=== PATIENT | male | born 1955 | race Caucasian/White ===

== ENCOUNTER → 2017-01-13 | Outpatient (CLI) | payer OTHER ==
[~2017-01-13] MED LIST: APIX5TAB PO; BRIM0.155 RIGHT EYE; DIGO0.25 PO; DILT1TAB4 PO; DORZ2SOL15 RIGHT EYE; LATA0.002 RIGHT EYE; SERT-132 PO; VIAG50TA PO
== END ==
LOC: OLAB 07:24
PROVIDERS: ATTEND Family Medicine
DX: R41.3 Other amnesia (principal)
CPT/HCPCS: 82607; 84443

== ENCOUNTER → 2017-03-19 | Outpatient (CLI) | payer OTHER ==
[~2017-03-19] MED LIST changes: +CLIN1CAP5 PO; +HYDR-3534 PO; +LEVA500T20 PO; +MUPI2OIN TOPICAL; +OXYC1TAB36 PO; +OXYC1TAB63 PO; +SENN1TAB PO; -VIAG50TA PO; +VITA100021 SL
[2017-03-19 09:08] LABS: HEMATOCRIT 45.8 % (39.0-51.0); MEAN CELL VOLUME 98.8 FL (80.0-100.0); MEAN CORPUSCULAR HEMOGLOBIN 33.2 PG (27.0-34.0); MEAN CORPUSCULAR HGB CONC 33.6 % (32.0-36.0); PLATELET COUNT 214 TH/MM3 (150-450); RED BLOOD COUNT 4.64 MIL/MM3 (4.50-5.90); RED CELL DISTRIBUTION WIDTH 12.7 % (11.6-17.2); REVIEW FLAG FINAL; WHITE BLOOD COUNT 4.7 TH/MM3 (4.0-11.0)
[2017-03-19 09:36] LABS: BICARBONATE 27.7 MEQ/L (21.0-32.0); POTASSIUM 4.1 MEQ/L (3.5-5.1)
== END ==
LOC: OLAB 07:36
PROVIDERS: ATTEND Nuclear Medicine Nuclear Cardiology
DX: I35.1 Nonrheumatic aortic (valve) insufficiency (principal); E03.9 Hypothyroidism, unspecified; I51.7 Cardiomegaly; I48.91 Unspecified atrial fibrillation
CPT/HCPCS: 80048; 85027

== ENCOUNTER 2017-04-30 21:33 | Inpatient (IN) | payer OTHER ==
[~2017-04-30] VITALS: Ht 188 cm; Wt 98.0 kg
[~2017-04-30 21:33] MED LIST changes: -CLIN1CAP5 PO; -HYDR-3534 PO; -LEVA500T20 PO; -OXYC1TAB36 PO; -OXYC1TAB63 PO; -SENN1TAB PO
[2017-04-30 21:38] VITALS: BP 119/71; PULSE 112; RESP 16; TEMP 97.8; O2SAT 98
--- NOTE | 2017-04-30 23:24 | PD ---
HPI Chief Complaint: Edema Time Seen by Provider: 22:51 Travel History International Travel<30 days: No Contact w/Intl Traveler<30days: No Traveled to known affect area: No History of Present Illness HPI Diagnoses a 62-year-old male who was seen and evaluated and admitted as a trauma alert on April 23, who presents today with complaints of worsening swelling and pain of his right lower extremity. Patient has a fevers, chills. He reports his pain and swelling is worse when he gets up to stand. He denies any drainage from his laceration. There are no other complaints time my examination. The patient does have a history of atrial fibrillation and is on eliquis. He denies any serous drainage of his wound. PFSH Past Medical History Atrial Fibrillation: Yes Diminished Hearing: No Glaucoma: Yes (rt eye) Immunizations Current: No Tetanus Vaccination: < 5 Years Past Surgical History Surgical History: No Previous Surgery Social History Alcohol Use: Yes (OCC) Tobacco Use: No Substance Use: No Allergies-Medications (Allergen,Severity, Reaction): Coded Allergies: No Known Allergies (Verified , 04/30/17) Reported Meds & Prescriptions Reported Meds & Active Scripts Active Lortab (Hydrocodone-Acetaminophen) 7.5-325 Mg Tab 1 Tab PO Q6H PRN Clindamycin (Clindamycin HCl) 150 Mg Cap 450 Mg PO TID 10 Days Mupirocin Topical (Mupirocin) 2 % Oint 1 Applic TOPICAL BID Sertraline (Sertraline HCl) 50 Mg Tab 50 Mg PO DAILY Brimonidine Opth Drops (Brimonidine Tartrate) 0.15% Soln 1 Drop RIGHT EYE BID Digoxin 0.25 Mg Tab 0.25 Mg PO DAILY Reported Vitamin B-12 (Cyanocobalamin) 1,000 Mcg Subl 1,000 Mcg SL DAILY Dorzolamide-Timolol Opth Drops 22.3-6.8 Mg/Ml Soln 1 Drop RIGHT EYE BID Eliquis (Apixaban) 5 Mg Tab 5 Mg PO BID Diltiazem ER 24 HR 240 Mg Briana 240 Mg PO DAILY Latanoprost Opth Drops (Latanoprost) 0.005% Drops 1 Drop RIGHT EYE HS Refrigerate until opened. Review of Systems Except as stated in HPI: all other systems reviewed are Neg General / Constitutional: No: Fever, Chills HENT: No: Headaches, Neck Pain Cardiovascular: No: Chest Pain or Discomfort, Palpitations Respiratory: No: Cough, Shortness of Breath Gastrointestinal: No: Nausea, Vomiting, Diarrhea Musculoskeletal: Positive: Edema, Pain (or significant edema of the right lower extremity [place] pain of the right lower extremity), No: Weakness Neurologic: No: Weakness, Dizziness, Headache Physical Exam Narrative GENERAL: Well developed well-nourished male in no acute respiratory distress. SKIN: Focused skin assessment warm/dry. HEAD: Atraumatic. Normocephalic. EYES: Pupils equal and round. No scleral icterus. No injection or drainage. ENT: No nasal bleeding or discharge. Mucous membranes pink and moist. NECK: Trachea midline. Supple. CARDIOVASCULAR: Regular rate and rhythm . No murmur appreciated. RESPIRATORY: No accessory muscle use. Clear to auscultation. Breath sounds equal bilaterally. GASTROINTESTINAL: Abdomen soft, non-tender, nondistended. Hepatic and splenic margins not palpable. MUSCULOSKELETAL: No obvious deformities. Patient has hematoma extending from his right upper inner thigh all the way down to his heel. There is no evidence of cellulitis. There is 1+ edema noted. He is able to flex and extend his ankle and knee. NEUROLOGICAL: Awake and alert. No obvious cranial nerve deficits. Motor grossly within normal limits. Normal speech. PSYCHIATRIC: Appropriate mood and affect; insight and judgment normal. Data Data Last Documented VS Vital Signs Date Time Temp Pulse Resp B/P (MAP) Pulse Ox O2 Delivery O2 Flow Rate FiO2 04/30/17 21:38 97.8 112 16 119/71 (87) 98 Room Air Orders Orders Ankle, Limited (Ap&Lat) (04/30/17 22:53) Femur (Ap & Lat/2vws) (04/30/17 22:53) Foot, Limited (2vws) (04/30/17 22:53) Tibia/Fibula (Ap/Lat) (04/30/17 22:53) Us Leg Venous Doppler (04/30/17 22:53) Complete Blood Count With Diff (05/01/17 00:08) Blood Culture (05/01/17 00:08) Morphine Inj (Morphine Inj) (05/01/17 00:15) Ondansetron Inj (Zofran Inj) (05/01/17 00:15) Mri Foot W&W/O Contrast (05/01/17 ) Gadodiamide Pf Inj (Omniscan Pf Inj) (05/01/17 01:42) Vancomycin Inj (Vancomycin Inj) (05/01/17 02:45) Apixaban (Eliquis) (05/01/17 02:45) Diltiazem Cd (Cardizem Cd) (05/01/17 02:45) Admit Order (Ed Use Only) (05/01/17 03:07) Labs Laboratory Tests Test 05/01/17 00:15 White Blood Count 8.4 TH/MM3 Red Blood Count 3.44 MIL/MM3 Hemoglobin 11.7 GM/DL Hematocrit 33.6 % Mean Corpuscular Volume 97.5 FL Mean Corpuscular Hemoglobin 34.1 PG Mean Corpuscular Hemoglobin Concent 34.9 % Red Cell Distribution Width 12.6 % Platelet Count 323 TH/MM3 Mean Platelet Volume 9.5 FL Neutrophils (%) (Auto) 71.5 % Lymphocytes (%) (Auto) 14.3 % Monocytes (%) (Auto) 13.4 % Eosinophils (%) (Auto) 0.2 % Basophils (%) (Auto) 0.6 % Neutrophils # (Auto) 6.0 TH/MM3 Lymphocytes # (Auto) 1.2 TH/MM3 Monocytes # (Auto) 1.1 TH/MM3 Eosinophils # (Auto) 0.0 TH/MM3 Basophils # (Auto) 0.1 TH/MM3 CBC Comment DIFF FINAL Differential Comment MDM Medical Decision Making Medical Screen Exam Complete: Yes Emergency Medical Condition: Yes Differential Diagnosis Sialitis versus fracture versus DVT Narrative Course 62-year-old male who was seen here on the as a trauma patient. At that time patient had fallen off of a semitruck onto a forklift. He had a large laceration and contusion to his right lower extremity. He was discharged home on Keflex. He has had worsening swelling and pain over the last 24 hours. The patient had a subjective fever at home. White blood cell count was within normal limits. X-rays of his right femur tib-fib and foot and ankle were ordered. All were negative except for the foot that had abnormality noted in his toes and an MRI was recommended. MRI shows cellulitis with synovitis in his right first toe. The patient will be admitted to the hospital and placed on vancomycin. Since he was on outpatient antibiotics this is a failed antibiotic cellulitis. This was discussed with Dr. Thompson, physician covering for his primary care doctor Dr. Bright Barrett. Diagnosis Primary Impression: right lower extremity cellulitis, failed outpatient antibiotics Additional Impressions: previous traumatic injury to right lower extremity. Atrial fibrillation Anticoagulated Admitting Information Admitting Physician Requests: Admit Scripts Hydrocodone-Acetaminophen (Lortab) 7.5-325 Mg Tab 1 TAB PO Q6H Y for PAIN, #20 TAB 0 Refills Prov: Sanjeev Caceres MD 05/01/17 Clindamycin (Clindamycin) 150 Mg Cap 450 MG PO TID for Infection for 10 Days, CAP 0 Refills Prov: Sanjeev Caceres MD 05/01/17 Sanjeev Caceres MD Apr 30, 2017 23:24
--- NOTE | 2017-04-30 23:51 | RADRPT ---
EXAM DATE/TIME: 04/30/2017 23:01 [facility] COMPARISON: No previous studies available for comparison. INDICATIONS : Right leg swelling. MEDICAL HISTORY : Atrial fibrillation. Glaucoma. Right leg swelling. SURGICAL HISTORY : Stitches to right medial calf. ENCOUNTER: Initial ACUITY: 3 days PAIN SCORE: 7/10 LOCATION: Right leg. TECHNIQUE: Venous ultrasound of the leg was performed from the inguinal ligament to the proximal calf. Real-meet e, color Doppler and spectral tracing, compression and augmentation techniques were used. FINDINGS: There is normal compressibility of the deep venous system from the inguinal region to the proximal ca lf. No echogenic clot is seen in the lumen of the common femoral, femoral, popliteal, and posterior tibial veins. There is a normal response of the venous system to proximal and distal augmentation an d respiration. There is a large hypoechoic mass in the medial right calf measuring 11 CM which may r eflect hematoma. CONCLUSION: 1. No evidence of deep venous thrombosis. 2. Probable hematoma right calf Simone Hernandez MD on April 30, 2017 at 23:48 Board Certified Radiologist. This report was verified electronically.
--- NOTE | 2017-04-30 23:59 | RADRPT ---
EXAM DATE/TIME: 04/30/2017 23:24 [facility] COMPARISON: No previous studies available for comparison. INDICATIONS : Right upper leg pain, swelling. Patient had stitches in right lower leg 1 week ago. MEDICAL HISTORY : None. SURGICAL HISTORY : None. ENCOUNTER: Initial ACUITY: 1 week PAIN SCORE: 5/10 LOCATION: Right entire upper leg FINDINGS: There is no evidence of acute fracture. Bony mineralization is normal. The femoral neck is broad whic h may be related to previous trauma. Joint spaces are maintained. A suprapatellar joint effusion is p resent. CONCLUSION: 1. There is no evidence of acute fracture. Joint effusion Simone Hernandez MD on April 30, 2017 at 23:57 Board Certified Radiologist. This report was verified electronically.
[2017-05-01] VITALS (9 sets, daily range): BP systolic 99–119; BP diastolic 61–79; PULSE 68–94; RESP 18–22; TEMP 96.5–98.7; O2SAT 95–99
--- NOTE | 2017-05-01 | RADRPT ---
EXAM DATE/TIME: 04/30/2017 23:27 [facility] COMPARISON: No previous studies available for comparison. INDICATIONS : Right ankle pain, swelling. Patient had stitches in right lower leg 1 week ago. MEDICAL HISTORY : None. SURGICAL HISTORY : None. ENCOUNTER: Initial ACUITY: 1 day PAIN SCORE: 5/10 LOCATION: Right lateral lower leg FINDINGS: Soft tissue swelling is present medially and laterally. The ankle mortise is intact. There is no evid ence of acute fracture. Bony mineralization is normal. An inferior calcaneal spur is present. CONCLUSION: 1. There is no evidence of acute fracture. Simone Hernandez MD on April 30, 2017 at 23:58 Board Certified Radiologist. This report was verified electronically.
--- NOTE | 2017-05-01 | RADRPT ---
EXAM DATE/TIME: 04/30/2017 23:27 [facility] COMPARISON: No previous studies available for comparison. INDICATIONS : Right lower leg pain, swelling. Patient had stitches in right lower leg 1 week ago. MEDICAL HISTORY : None. SURGICAL HISTORY : None. ENCOUNTER: Initial ACUITY: 1 week PAIN SCORE: 5/10 LOCATION: Right lateral lower leg FINDINGS: Two view examination of the right tibia demonstrates no evidence of fracture or dislocation. Bony mi neralization is normal. The soft tissue structures are intact. CONCLUSION: 1. There is no evidence of acute fracture. Simone Hernandez MD on April 30, 2017 at 23:58 Board Certified Radiologist. This report was verified electronically.
--- NOTE | 2017-05-01 00:05 | RADRPT ---
EXAM DATE/TIME: 04/30/2017 23:29 [facility] COMPARISON: No previous studies available for comparison. INDICATIONS : Right foot pain, swelling for 1 week. Patient had stitches in lower leg 1 week ago. MEDICAL HISTORY : None. SURGICAL HISTORY : None. ENCOUNTER: Initial ACUITY: 1 week PAIN SCORE: 5/10 LOCATION: Right entire foot FINDINGS: Diffuse soft tissue swelling is present. There is hallux valgus deformity at the head of the first me tatarsal. Osteoarthritis is present. There is a lucent lesion measuring 2 cm in diameter in the first proximal phalanx. Etiology is uncertain though no breast features are identified. An inferior calcan eal spur is present. CONCLUSION: 1. There is no evidence of acute fracture. Diffuse soft tissue swelling 2. 2 cm lucent lesion in the proximal phalanx first digit of uncertain etiology. MRI is recommended f or further evaluation if clinically indicated. Simone Hernandez MD on May 01, 2017 at 0:02 Board Certified Radiologist. This report was verified electronically.
[2017-05-01] MEDS ORDERED: ONDANSETRON HCL 4 MG/2 ML VIAL IV PUSH ONE (00:15)
[2017-05-01] MEDS ORDERED: MORPHINE SULFATE 8 MG/ML INJ IV PUSH ONE (00:15)
[2017-05-01 00:28] LABS: BASOPHIL # 0.1 TH/MM3 (0-0.2); BASOPHIL % 0.6 % (0.0-2.0); EOSINOPHIL % 0.2 % (0.0-4.0); HEMATOCRIT 33.6 % (39.0-51.0); HEMO FLAGS DIFF FINAL; LYMPH % 14.3 % (9.0-44.0); LYMPHOCYTE # 1.2 TH/MM3 (1.0-4.8); MEAN CELL VOLUME 97.5 FL (80.0-100.0); MEAN CORPUSCULAR HEMOGLOBIN 34.1 PG (27.0-34.0); MEAN CORPUSCULAR HGB CONC 34.9 % (32.0-36.0); MONO % 13.4 % (0.0-8.0); NEUT % 71.5 % (16.0-70.0); PLATELET COUNT 323 TH/MM3 (150-450); RED BLOOD COUNT 3.44 MIL/MM3 (4.50-5.90); RED CELL DISTRIBUTION WIDTH 12.6 % (11.6-17.2); WHITE BLOOD COUNT 8.4 TH/MM3 (4.0-11.0)
[2017-05-01] MEDS ORDERED: GADODIAMIDE PF 287 MG/ML 20 ML VIAL (for RAD MRI) IVCONTRAST ONE (01:42)
[2017-05-01] MEDS ORDERED: CLIN1CAP5 PO (01:43)
[2017-05-01] MEDS ORDERED: HYDR-3534 PO (01:43)
--- NOTE | 2017-05-01 02:27 | RADRPT ---
EXAM DATE/TIME: 05/01/2017 01:25 [facility] COMPARISON: FOOT RIGHT LIMITED (2VWS), April 30, 2017, 23:29. INDICATIONS : Trauma. Pain and swelling of right foot with abnormal foot xray. CONTRAST: 19 cc Omniscan (gadodiamide) IV MEDICAL HISTORY : Atrial fibrillation. SURGICAL HISTORY : None. ENCOUNTER: Initial ACUITY: 1 week PAIN SCORE: 6/10 LOCATION: Right foot. TECHNIQUE: Multiplanar, multisequence MRI examination was performed without contrast and after the intravenous a dministration of gadolinium. FINDINGS: No discrete lesion is identified involving the proximal phalanx. There is prominent enhancement of th e first metatarsophalangeal joint with fluid within the joint and findings of osteoarthritis. No toph i are seen. No focal areas of marrow placement are identified. There is diffuse soft tissue swelling over the dorsum of the foot. There is no evidence of abscess. CONCLUSION: Findings of cellulitis as well synovitis involving the first metatarsophalangeal joint. No bony destr uctive lesion is identified Simone Hernandez MD on May 01, 2017 at 2:18 Board Certified Radiologist. This report was verified electronically.
[2017-05-01] MEDS ORDERED: VANCOMYCIN INJ 1,000 MG in SODIUM CHLOR 0.9% 250 ML INJ 250 ML IV ONE (02:45)
[2017-05-01] MEDS ORDERED: DILTIAZEM-CD 240 MG CAP ER PO ONE (02:45)
[2017-05-01] MEDS ORDERED: APIXABAN 5 MG TABLET PO ONE (02:45)
--- NOTE | 2017-05-01 03:05 | HHI.HP ---
[facility] Service Family Medicine Primary Care Physician Bright Shane MD Admission Diagnosis Diagnoses: International Travel<30 Days: No Contact w/Intl Traveler<30days: No Known Affected Area: No History of Present Illness Patient is a a 62-year-old male with a history of A. fib on Eliquis who was seen and evaluated and admitted as a trauma alert on April 23, who presents today with complaints of worsening pain and swelling of his right lower extremity. Patient denies fevers, chills. He reports his pain and swelling is worse when he gets up to stand. He reports that he is not taking any pain medications for this pain. He describes the pain as an intense dull ache, worse with movement, especially at the ball of foot bad. He reports that when he arrived at the emergency department his pain was 8 out of 10. His pain is 10 out of 10 with standing. He reports that the morphine he received in the ED helped. He reports red and clear drainage from his laceration. He denies any other complaints. After trauma alert on 04/23, he was discharged with Keflex and follow up. He was taking this medication from 04/23 to yesterday. He f/u in clinic on Friday and saw Dr. Shirley. He returned to clinic again on Friday and saw Dr. Bass and Dr. Shane. He was still achey and sore at that time. The swelling and redness was mostly the same. However, his ankle and foot were not bad. They continued Keflex and switched Neosporin for Mupirocin and cautioned him regarding compartment syndrome. Patient presented today because his toes got sore today. He reports foot is more swollen now, more painful, more TTP. Of note, he reports that he has been showering normally, but he pats his wound dry. (Ross Thompson MD R2) Review of Systems Other Denies fever or chills No polyuria, polydipsia Denies vision changes, eye pain, hearing changes, rhinorrhea, sore throat Denies sore throat, runny nose, cough No chest pain, palpitations, shortness of breath No abdominal pain Denies constipation, diarrhea, nausea, vomiting, black or bloody stools No dysuria, hematuria Denies muscle/joint pain, weakness, headache No rashes, itching (Ross Thompson MD R2) Past Family Social History Past Medical History Past Medical History: Paroxysmal A. Fib. - on AC with Eliquis H/o + PPD Sleep apnea - previous sleep study by Dr. Robison Other Physicians involved in care: Dr. Hernández; ophthalmology Past Surgical History denies Reported Medications Reported Meds & Active Scripts Active Lortab (Hydrocodone-Acetaminophen) 7.5-325 Mg Tab 1 Tab PO Q6H PRN Clindamycin (Clindamycin HCl) 150 Mg Cap 450 Mg PO TID 10 Days Mupirocin Topical (Mupirocin) 2 % Oint 1 Applic TOPICAL BID Sertraline (Sertraline HCl) 50 Mg Tab 50 Mg PO DAILY Brimonidine Opth Drops (Brimonidine Tartrate) 0.15% Soln 1 Drop RIGHT EYE BID Digoxin 0.25 Mg Tab 0.25 Mg PO DAILY Reported Vitamin B-12 (Cyanocobalamin) 1,000 Mcg Subl 1,000 Mcg SL DAILY Dorzolamide-Timolol Opth Drops 22.3-6.8 Mg/Ml Soln 1 Drop RIGHT EYE BID Eliquis (Apixaban) 5 Mg Tab 5 Mg PO BID Diltiazem ER 24 HR 240 Mg Briana 240 Mg PO DAILY Latanoprost Opth Drops (Latanoprost) 0.005% Drops 1 Drop RIGHT EYE HS Refrigerate until opened. (Ross Thompson MD R2) Allergies: Coded Allergies: No Known Allergies (Verified , 04/30/17) Active Ordered Medications Current Medications Medications (Trade) Dose Ordered Sig/Estella Route Start Time Stop Time Status Last Admin Vancomycin HCl 1000 mg/Sodium Chloride 250 ml @ 125 mls/hr ONCE ONCE IV 05/01/17 02:45 05/01/17 04:44 05/01/17 03:08 Sodium Chloride 1,000 ml @ 140 mls/hr Q7H9M IV 05/01/17 04:00 (NS Flush) 2 ml UNSCH PRN IV FLUSH 05/01/17 03:45 (NS Flush) 2 ml BID IV FLUSH 05/01/17 09:00 (Tylenol) 650 mg Q4H PRN PO 05/01/17 03:45 (Zofran Inj) 4 mg Q6H PRN IVP 05/01/17 03:45 (Narcan Inj) 0.4 mg UNSCH PRN IV PUSH 05/01/17 03:45 (Ying-Colace) 1 tab BID PO 05/01/17 09:00 (Milk Of Magnesia Liq) 30 ml Q12H PRN PO 05/01/17 03:45 (Senokot) 17.2 mg Q12H PRN PO 05/01/17 03:45 (Dulcolax Supp) 10 mg DAILY PRN RECTAL 05/01/17 03:45 (Lactulose Liq) 30 ml DAILY PRN PO 05/01/17 03:45 Pharmacy Profile Note 0 ml @ 0 mls/hr UNSCH XX 05/01/17 03:45 UNV Vancomycin HCl 1000 mg/Sodium Chloride 250 ml @ 250 mls/hr Q12H IV 05/01/17 04:45 UNV Piperacillin Sod/ Tazobactam Sod 50 ml @ 100 mls/hr Q6H IV 05/01/17 05:00 (Tylenol) 650 mg Q6H PRN PO 05/01/17 03:45 (Morphine Inj) 4 mg Q3H PRN IV PUSH 05/01/17 03:45 UNV (Narcan Inj) 0.4 mg UNSCH PRN IV PUSH 05/01/17 03:45 UNV (Percocet 10-325 Mg) 1 tab Q6H PRN PO 05/01/17 03:45 UNV (Eliquis) 5 mg BID PO 05/01/17 09:00 UNV (Alphagan P 0.15% Opth Soln) 1 drop BID RIGHT EYE 05/01/17 09:00 UNV (Vitamin B12) 1,000 mcg DAILY PO 05/01/17 09:00 UNV (Lanoxin) 0.25 mg DAILY PO 05/01/17 09:00 UNV (Cardizem Cd) 240 mg DAILY PO 05/01/17 09:00 UNV (Cosopt 2-0.5% Opth Soln) 1 drop BID RIGHT EYE 05/01/17 09:00 UNV (Xalatan 0.005% Opth Soln) 1 drop HS RIGHT EYE 05/01/17 21:00 UNV (Bactroban 2% Oint) 1 applic BID TOPICAL 05/01/17 09:00 UNV (Zoloft) 50 mg DAILY PO 05/01/17 09:00 UNV (Percocet 5-325 Mg) 2 tab Q6H PRN PO 05/01/17 04:15 Family History Family History: Father with carotid artery disease also with atrial fibrillation. at 86. Mother - hypertension. alive at 85 (mod. dementia- now in SNF). Brother of lung cancer. Social History Social History: Non-smoker. Works for [employer] in [employer]. . 2 grown kids. (Ross Thompson MD R2) Physical Exam Vital Signs Vital Signs Date Time Temp Pulse Resp B/P (MAP) Pulse Ox O2 Delivery O2 Flow Rate FiO2 04/30/17 21:38 97.8 112 16 119/71 (87) 98 Room Air Physical Exam GENERAL: Well developed well-nourished middle-aged male pleasant and in NAD. SKIN: See MSK exam. Otherwise, Focused skin assessment warm/dry. HEAD: Atraumatic. Normocephalic. EYES: Pupils equal and round. No scleral icterus. No injection or drainage. ENT: No nasal bleeding or discharge. Mucous membranes pink and moist. NECK: Trachea midline. Supple. CARDIOVASCULAR: Regular rate and rhythm . No murmur appreciated. RESPIRATORY: No accessory muscle use. Clear to auscultation. Breath sounds equal bilaterally. GASTROINTESTINAL: Abdomen soft, non-tender, nondistended. Hepatic and splenic margins not palpable. MUSCULOSKELETAL: 8 cm laceration on anterior aspect of right brown with multiple sutures and sanguinous drainage, which was collected and sent for wound culture. He has an area of erythema about 60 cm x 15 cm on his right anterior leg extending from his thigh down to his lower leg. He also has an area of erythema about 8 cm x 8 cm on his right medial ankle. He also has an area of erythema on his right MCP about 2 cm x 3 cm. Patient has hematoma extending from his right upper inner thigh all the way down to his heel. + Warmth, erythema. There is 1+ edema noted. He is able to partially flex and extend his ankle and knee. Palpable DP pulse with cap refill <2 secs. Able to wiggle and feel all five toes. NEUROLOGICAL: Awake and alert. No obvious cranial nerve deficits. Motor grossly within normal limits. Normal speech. PSYCHIATRIC: Appropriate mood and affect; insight and judgment normal. Laboratory Laboratory Tests Test 05/01/17 00:15 White Blood Count 8.4 Red Blood Count 3.44 Hemoglobin 11.7 Hematocrit 33.6 Mean Corpuscular Volume 97.5 Mean Corpuscular Hemoglobin 34.1 Mean Corpuscular Hemoglobin Concent 34.9 Red Cell Distribution Width 12.6 Platelet Count 323 Mean Platelet Volume 9.5 Neutrophils (%) (Auto) 71.5 Lymphocytes (%) (Auto) 14.3 Monocytes (%) (Auto) 13.4 Eosinophils (%) (Auto) 0.2 Basophils (%) (Auto) 0.6 Neutrophils # (Auto) 6.0 Lymphocytes # (Auto) 1.2 Monocytes # (Auto) 1.1 Eosinophils # (Auto) 0.0 Basophils # (Auto) 0.1 CBC Comment DIFF FINAL Differential Comment Date/Time Source Procedure Growth Status 05/01/17 00:15 Blood Peripheral Aerobic Blood Culture Pending Received 05/01/17 00:15 Blood Peripheral Anaerobic Blood Culture Pending Received (Ross Thompson MD R2) Result Diagram: 05/01/17 0015 Imaging Last Impressions Foot MRI 05/01/17 0000 Signed Impressions: Service Date/Time: April 01:25 - CONCLUSION: Findings of cellulitis as well synovitis involving the first metatarsophalangeal joint. No bony destructive lesion is identified Simone Hernandez MD Tibia/Fibula X-Ray 04/30/172252 Signed Impressions: Service Date/Time: Sunday, April 30, 2017 23:27 - CONCLUSION: 1. There is no evidence of acute fracture. Simone Hernandez MD Lower Extremity Ultrasound 04/30/172252 Signed Impressions: Service Date/Time: Sunday, April 30, 2017 23:01 - CONCLUSION: 1. No evidence of deep venous thrombosis. 2. Probable hematoma right calf Simone Hernandez MD Foot X-Ray 04/30/172252 Signed Impressions: Service Date/Time: Sunday, April 30, 2017 23:29 - CONCLUSION: 1. There is no evidence of acute fracture. Diffuse soft tissue swelling 2. 2 cm lucent lesion in the proximal phalanx first digit of uncertain etiology. MRI is recommended for further evaluation if clinically indicated. Simone Hernandez MD Femur X-Ray 04/30/172252 Signed Impressions: Service Date/Time: Sunday, April 30, 2017 23:24 - CONCLUSION: 1. There is no evidence of acute fracture. Joint effusion Simone Hernandez MD Ankle X-Ray 04/30/17 1761 Signed Impressions: Service Date/Time: Sunday, April 30, 2017 23:27 - CONCLUSION: 1. There is no evidence of acute fracture. Simone Hernandez MD Course In the emergency department, patient had ultrasound of leg with venous Doppler, which was negative, tib Ita/fibula x-ray, foot x-ray, femur x-ray, ankle x- ray, blood culture, CBC, Zofran, morphine 5 mg IV push, MRI of foot with and without contrast, Cardizem by mouth, Eliquis, vancomycin IV, admission order. (Ross Thompson MD R2) Caprini VTE Risk Assessment Caprini VTE Risk Assessment: Mod/High Risk (score >= 2) Caprini Risk Assessment Model Point Value = 1 Point Value = 2 Point Value = 3 Point Value = 5 Age 41-60 Minor surgery BMI > 25 kg/m2 Swollen legs Varicose veins or History of unexplained or recurrent spontaneous Oral contraceptives or hormone replacement Sepsis (< 1 month) Serious lung disease, including pneumonia (< 1 month) Abnormal pulmonary function Acute myocardial infarction Congestive heart failure (< 1 month) History of inflammatory bowel disease Medical patient at bed rest Age 61-74 Arthroscopic surgery Major open surgery (> 45 min) Laparoscopic surgery (> 45 min) Malignancy Confined to bed (> 72 hours) Immobilizing plaster cast Central venous access Age >= 75 History of VTE Family history of VTE Factor V Leiden Prothrombin [id number] Lupus anticoagulant Anticardiolipin antibodies Elevated serum homocysteine Heparin-induced thrombocytopenia Other congenital or acquired thrombophilia Stroke (< 1 month) Elective arthroplasty Hip, pelvis, or leg fracture Acute spinal cord injury (< 1 month) Prophylaxis Regimen Total Risk Factor Score Risk Level Prophylaxis Regimen 0-1 Low Early ambulation 2 Moderate Order ONE of the following: *Sequential Compression Device (SCD) *Heparin 5000 units SQ BID 3-4 Higher Order ONE of the following medications: *Heparin 5000 units SQ TID *Enoxaparin/Lovenox 40 mg SQ daily (WT < 150 kg, CrCl > 30 mL/min) *Enoxaparin/Lovenox 30 mg SQ daily (WT < 150 kg, CrCl > 10-29 mL/min) *Enoxaparin/Lovenox 30 mg SQ BID (WT < 150 kg, CrCl > 30 mL/min) AND/OR *Sequential Compression Device (SCD) 5 or more Highest Order ONE of the following medications: *Heparin 5000 units SQ TID (Preferred with Epidurals) *Enoxaparin/Lovenox 40 mg SQ daily (WT < 150 kg, CrCl > 30 mL/min) *Enoxaparin/Lovenox 30 mg SQ daily (WT < 150 kg, CrCl > 10-29 mL/min) *Enoxaparin/Lovenox 30 mg SQ BID (WT < 150 kg, CrCl > 30 mL/min) AND *Sequential Compression Device (SCD) (Ross Thompson MD R2) Assessment and Plan Assessment and Plan Patient is a a 62-year-old male with a history of A. fib on Eliquis who was seen and evaluated and admitted as a trauma alert on April 23, who presents today with complaints of worsening pain and swelling of his right lower extremity concerning for cellulitis. Patient failed outpatient therapy with Keflex. Thus, patient will be admitted for IV antibiotics. Code Status Full code Discussed Condition With Dr. Caceres, Dr. Dunne (Ross Thompson MD R2) Attending Attestation Patient seen and examined. Case reviewed and discussed with the resident team. Agree with plan of care as discussed with me and documented in the resident note. Pt seen in H pod with Dr Almendarez. He has extensive hematoma and cellulitis. Because this is lower extremity, it could be infected with bacteria. A culture was sent of what was draining but unsure if it was an accurate culture as it was not of the deeper wound per pt. Will ask surgery to see if he would benefit from opening up his sutures or perhaps draining the hematoma as it could be the source of infection. Pt wishes to hold his eliquis until tonight as he received a pill at about 3 am and may need some surgical attention (Cari Pittman MD) Problem List: (1) Cellulitis ICD Codes: L03.90 - Cellulitis, unspecified Plan: -CBC, CMP -Follow up blood culture and wound culture -Admit to inpatient -Maintenance IV fluids with normal saline IV at 140 mL per hour -Vancomycin to be dosed by pharmacy about every 12 hours to cover any and all skin nancy -Zosyn 3.375 g IV every 6 hours because patient has been showering normally and thus may have contamination of wound by fecal nancy -Continue mupirocin topical bid -Pain control with Tylenol, Percocet, morphine; can change pending CMP; would have included NSAIDs but did not have kidney function tests -Monitor intake and output -Monitor vital signs -Physical therapy -Oxygen as needed -Consider orthopedic surgery consult for MRI finding of synovitis (2) Atrial fibrillation ICD Codes: I48.91 - Atrial fibrillation Status: Chronic Plan: -Continue home medications of Cardizem, digoxin, Eliquis (3) Glaucoma ICD Codes: H40.9 - Unspecified glaucoma Status: Chronic Plan: -Continue home eyedrops (4) Depression ICD Codes: F32.9 - Major depressive disorder, single episode, unspecified Status: Chronic Plan: -Continue home medication of sertraline (5) No contraindication to deep vein thrombosis (DVT) prophylaxis ICD Codes: Z78.9 - Other specified health status Plan: -Continue home medication of Eliquis (6) Nutrition, metabolism, and development symptoms ICD Codes: R63.8 - Other symptoms and signs concerning food and fluid intake Plan: Fluids: Maintenance fluids with normal saline IV Electrolytes: Monitor and replete Nutrition: Regular basic diet (Ross Thompson MD R2) Problem List: (1) Cellulitis ICD Codes: L03.90 - Cellulitis, unspecified Plan: -CBC, CMP -Follow up blood culture and wound culture -Admit to inpatient -Maintenance IV fluids with normal saline IV at 140 mL per hour -Vancomycin to be dosed by pharmacy about every 12 hours to cover any and all skin nancy -Zosyn 3.375 g IV every 6 hours because patient has been showering normally and thus may have contamination of wound by fecal nancy -Continue mupirocin topical bid -Pain control with Tylenol, Percocet, morphine; can change pending CMP; would have included NSAIDs but did not have kidney function tests -Monitor intake and output -Monitor vital signs -Physical therapy -Oxygen as needed -Consider orthopedic surgery consult for MRI finding of synovitis (2) Atrial fibrillation ICD Codes: I48.91 - Atrial fibrillation Status: Chronic Plan: -Continue home medications of Cardizem, digoxin, Eliquis (3) Glaucoma ICD Codes: H40.9 - Unspecified glaucoma Status: Chronic Plan: -Continue home eyedrops (4) Depression ICD Codes: F32.9 - Major depressive disorder, single episode, unspecified Status: Chronic Plan: -Continue home medication of sertraline (5) No contraindication to deep vein thrombosis (DVT) prophylaxis ICD Codes: Z78.9 - Other specified health status Plan: -Continue home medication of Eliquis (6) Nutrition, metabolism, and development symptoms ICD Codes: R63.8 - Other symptoms and signs concerning food and fluid intake Plan: Fluids: Maintenance fluids with normal saline IV Electrolytes: Monitor and replete Nutrition: Regular basic diet (Cari Pittman MD) Physician Certification 2 Midnight Certification Type: Admission for Inpatient Services Order for Inpatient Services The services are ordered in accordance with Medicare regulations or non- Medicare payer requirements, as applicable. In the case of services not specified as inpatient-only, they are appropriately provided as inpatient services in accordance with the 2-midnight benchmark. Estimated LOS (days): 2 2 days is the estimated time the patient will need to remain in the hospital, assuming treatment plan goals are met and no additional complications. Post-Hospital Plan: Home (Ross Thompson MD R2) Problem Qualifiers (1) Cellulitis: Qualified Codes: L03.115 - Cellulitis of right lower limb (2) Atrial fibrillation: Qualified Codes: I48.2 - Chronic atrial fibrillation (3) Glaucoma: (4) Depression: Qualified Codes: F32.9 - Major depressive disorder, single episode, unspecified Ross Thompson MD R2 May 01, 2017 03:04 Cari Pittman MD May 01, 2017 09:12
[2017-05-01] MEDS ORDERED: Vancomycin Consult Pharmacy 1 EA OTHER SCH (03:45)
[2017-05-01] MEDS ORDERED: LACTULOSE SYRUP 20 GM/30 ML CUP PO PRN (03:45)
[2017-05-01] MEDS ORDERED: BISACODYL 10 MG SUPP RECTAL PRN (03:45)
[2017-05-01] MEDS ORDERED: NALOXONE HCL 0.4 MG/ML AMP IV PUSH PRN ×2 (03:45)
[2017-05-01] MEDS ORDERED: ACETAMINOPHEN 325 MG TAB PO PRN ×2 (03:45)
[2017-05-01] MEDS ORDERED: SENNOSIDES 8.6 MG TAB PO PRN (03:45)
[2017-05-01] MEDS ORDERED: SODIUM CHLORIDE 0.9% FLUSH 10 ML FLUSH IV FLUSH PRN (03:45)
[2017-05-01] MEDS ORDERED: MAGNESIUM HYDROXIDE SUSP 30 ML CUP PO PRN (03:45)
[2017-05-01] MEDS ORDERED: ONDANSETRON HCL 4 MG/2 ML VIAL IVP PRN (03:45)
[2017-05-01] MEDS ORDERED: SODIUM CHLOR 0.9% 1000 ML INJ 1,000 ML IV SCH (04:00)
[2017-05-01] MEDS ORDERED: oxyCODONE/ACETAMINOPHEN 5 MG/325 MG TAB PO PRN (04:15)
[2017-05-01] MEDS ORDERED: VANCOMYCIN INJ 1,000 MG in SODIUM CHLOR 0.9% 250 ML INJ 250 ML IV SCH (04:45)
[2017-05-01] MEDS: MORPHINE SULFATE 4 MG/ML INJ IV PUSH PRN (04:45)
[2017-05-01] MEDS: PIPERACIL-TAZO 3.375 GM PREMIX 50 ML IV SCH ×4 (05:05→22:44)
[2017-05-01] MEDS: SERTRALINE HCL 50 MG TAB PO SCH (08:56)
[2017-05-01] MEDS: DOCUSATE SODIUM 50 MG/SENNA 8.6 MG TAB PO SCH ×2 (08:57→19:47)
[2017-05-01] MEDS: DIGOXIN 0.25 MG TAB PO SCH (08:57)
[2017-05-01] MEDS: BRIMONIDINE TARTRATE 0.15% OPHT SOLN 5 ML BTL RIGHT EYE SCH ×2 (08:58→19:46)
[2017-05-01] MEDS: DORZOLAMIDE/TIMOLOL OPTH SOLN 10 ML BTL RIGHT EYE SCH ×2 (08:58→19:46)
[2017-05-01] MEDS: SODIUM CHLORIDE 0.9% FLUSH 10 ML FLUSH IV FLUSH SCH ×2 (08:58→19:47)
[2017-05-01] MEDS ORDERED: MUPIROCIN 2% OINT 22 GM TUBE TOPICAL SCH (09:00)
[2017-05-01] MEDS ORDERED: APIXABAN 5 MG TABLET PO SCH ×2 (09:15→21:00)
[2017-05-01] MEDS: CYANOCOBALAMIN 1,000 MCG TAB PO SCH (10:36)
[2017-05-01] MEDS: VANCOMYCIN INJ 1,500 MG in SODIUM CHLORID 0.9% 500 ML INJ 500 ML IV SCH ×2 (10:37→22:44)
[2017-05-01 17:25] LABS: ALT (GPT) 23 U/L (12-78); ANION GAP 5 MEQ/L (5-15); AST (GOT) 11 U/L (15-37); BLOOD UREA NITROGEN 14 MG/DL (7-18); CHLORIDE 105 MEQ/L (98-107); GLOMERULAR FILTRATION RATE 93 ML/MIN (>89); POTASSIUM 4.1 MEQ/L (3.5-5.1); SODIUM (NA) 138 MEQ/L (136-145)
[2017-05-01 17:27] LABS: ALKALINE PHOSPHATASE 59 U/L (45-117); TOTAL BILIRUBIN ADULT 0.7 MG/DL (0.2-1.0)
[2017-05-01] MEDS: oxyCODONE/ACETAMINOPHEN 10 MG/325 MG TAB PO PRN (19:46)
[2017-05-01] MEDS: LATANOPROST 0.005% OPHT SOLN 2.5 ML BTL RIGHT EYE SCH (19:46)
[2017-05-01] MEDS: APIXABAN 5 MG TABLET PO SCH (19:47)
[2017-05-01] MEDS: DILTIAZEM-CD 240 MG CAP ER PO SCH (21:52)
[2017-05-02] MEDS: PIPERACIL-TAZO 3.375 GM PREMIX 50 ML IV SCH ×3 (05:24→16:59)
[2017-05-02 06:50] LABS: HEMATOCRIT 27.5 % (39.0-51.0); MEAN CELL VOLUME 96.3 FL (80.0-100.0); MEAN CORPUSCULAR HEMOGLOBIN 33.9 PG (27.0-34.0); MEAN CORPUSCULAR HGB CONC 35.2 % (32.0-36.0); PLATELET COUNT 240 TH/MM3 (150-450); RED BLOOD COUNT 2.85 MIL/MM3 (4.50-5.90); RED CELL DISTRIBUTION WIDTH 12.3 % (11.6-17.2); REVIEW FLAG FINAL; WHITE BLOOD COUNT 5.5 TH/MM3 (4.0-11.0)
[2017-05-02 07:34] LABS: BICARBONATE 26.2 MEQ/L (21.0-32.0)
[2017-05-02 08:10] VITALS: BP 124/76; PULSE 96; RESP 15; TEMP 98; O2SAT 95
[2017-05-02] MEDS: DIGOXIN 0.25 MG TAB PO SCH (09:00)
[2017-05-02] MEDS: DOCUSATE SODIUM 50 MG/SENNA 8.6 MG TAB PO SCH ×2 (09:00→21:20)
[2017-05-02] MEDS: SERTRALINE HCL 50 MG TAB PO SCH (09:00)
[2017-05-02] MEDS: CYANOCOBALAMIN 1,000 MCG TAB PO SCH (09:00)
[2017-05-02] MEDS ORDERED: PHARMACY ORDERED LAB ONE (09:45)
[2017-05-02] MEDS: SODIUM CHLORIDE 0.9% FLUSH 10 ML FLUSH IV FLUSH SCH ×2 (10:09→21:20)
[2017-05-02] MEDS: VANCOMYCIN INJ 1,500 MG in SODIUM CHLORID 0.9% 500 ML INJ 500 ML IV SCH ×2 (10:16→21:21)
[2017-05-02] MEDS: APIXABAN 5 MG TABLET PO SCH ×2 (10:21→21:20)
[2017-05-02] MEDS: DORZOLAMIDE/TIMOLOL OPTH SOLN 10 ML BTL RIGHT EYE SCH ×2 (10:22→21:22)
[2017-05-02] MEDS: BRIMONIDINE TARTRATE 0.15% OPHT SOLN 5 ML BTL RIGHT EYE SCH ×2 (10:22→21:22)
[2017-05-02] MEDS: oxyCODONE/ACETAMINOPHEN 5 MG/325 MG TAB PO PRN (10:31)
[2017-05-02 11:45] VITALS: BP 104/61; PULSE 84; RESP 12; TEMP 96.8; O2SAT 96
--- NOTE | 2017-05-02 11:54 | PD.CAR.PN ---
CVT Progress Note Subjective/Hospital Course: 62-year-old patient who sustained an injury stepping off of a forklift in the form of a laceration of the right lower leg Apparently this was a flap-like irregular avulsion type injury and was repaired in the operating room primarily Patient is on Eliquis due to chronic A. fib He comes back 9 days later where the swelling and pain with some drainage from the right leg incision Examination reveals bilateral good femoral popliteal dorsalis pedis and posterior tibial pulses There is definitely large area of contusion and bruising encompassing the medial portion of the calf and there is some drainage from the jagged like incision closure in the lower portion of the calf Most of the subcutaneous area in question on palpation is fluctuant and contains large hematoma At the bedside I have a can the stitches out and extracted about 200 cc of old semi-coagulated blood. Cultures obtained and wound care orders given Most likely this gentleman will not need any further surgery but if there is any question about infection then I'll have to taken to the OR and make a counterincision and wash this out Right now would keep him on IV antibiotics in the hospital with wound care He can continue Eliquis Objective: Vital Signs Date Time Temp Pulse Resp B/P (MAP) Pulse Ox O2 Delivery O2 Flow Rate FiO2 05/02/17 08:10 98.0 96 15 124/76 (92) 95 05/01/17 22:31 96.5 72 20 119/79 (92) 95 05/01/17 20:06 98.7 68 18 103/61 (75) 99 05/01/17 19:17 98 05/01/17 17:04 98.5 71 18 99/63 (75) 98 05/01/17 12:10 98.2 73 22 116/61 (79) 99 Labs: Laboratory Tests Test 05/02/17 06:17 05/02/17 10:00 White Blood Count 5.5 TH/MM3 (4.0-11.0) Red Blood Count 2.85 MIL/MM3 (4.50-5.90) Hemoglobin 9.7 GM/DL (13.0-17.0) Hematocrit 27.5 % (39.0-51.0) Mean Corpuscular Volume 96.3 FL (80.0-100.0) Mean Corpuscular Hemoglobin 33.9 PG (27.0-34.0) Mean Corpuscular Hemoglobin Concent 35.2 % (32.0-36.0) Red Cell Distribution Width 12.3 % (11.6-17.2) Platelet Count 240 TH/MM3 (150-450) Mean Platelet Volume 8.4 FL (7.0-11.0) Blood Urea Nitrogen 13 MG/DL (7-18) Creatinine 0.82 MG/DL (0.60-1.30) Random Glucose 85 MG/DL (74-106) Calcium Level 8.4 MG/DL (8.5-10.1) Sodium Level 138 MEQ/L (136-145) Potassium Level 4.0 MEQ/L (3.5-5.1) Chloride Level 106 MEQ/L (98-107) Carbon Dioxide Level 26.2 MEQ/L (21.0-32.0) Anion Gap 6 MEQ/L (5-15) Estimat Glomerular Filtration Rate 95 ML/MIN (>89) Vancomycin Level Trough 12.7 MCG/ML (5.0-10.0) Result Diagram: 05/02/17 0617 05/02/17 0617 Tara Steve MD May 02, 2017 11:54
--- NOTE | 2017-05-02 12:08 | HHI.HP ---
[facility] Service Family Medicine Primary Care Physician Bright Shane MD Admission Diagnosis Diagnoses: (1) Cellulitis Diagnosis: Principal (2) Atrial fibrillation Diagnosis: Principal (3) Glaucoma Diagnosis: Principal (4) Depression Diagnosis: Principal (5) No contraindication to deep vein thrombosis (DVT) prophylaxis Diagnosis: Principal (6) Nutrition, metabolism, and development symptoms Diagnosis: Principal International Travel<30 Days: No Contact w/Intl Traveler<30days: No Known Affected Area: No History of Present Illness Mr Holley is a 62-year-old male with a history of A. fib on quis who was seen and evaluated and admitted as a trauma alert on April 23 because of an injury associated with a fall, who presented with complaints of worsening pain and swelling and erythema with warmth of his right lower extremity. Patient denies fevers, chills. He reports his pain and swelling is worse when he gets up to stand. He reports that he is not taking any pain medications for this pain. He describes the pain as an intense dull ache, worse with movement, especially at the ball of foot bad. He reports that when he arrived at the emergency department his pain was 8 out of 10. His pain is 10 out of 10 with standing. He reports that the morphine he received in the ED helped. He reports red and clear drainage from his laceration. He denies any other complaints. After trauma alert on 04/23, he was discharged with Keflex and follow up. He was taking this medication from 04/23 to yesterday. He f/u in clinic on Friday and saw Dr. Shirley. He returned to clinic again on Friday and saw Dr. Bass and Dr. Shane. He was still achy and sore at that time. The swelling and redness was mostly the same. However, his ankle and foot were not bad. They continued Keflex and switched Neosporin for Mupirocin and cautioned him regarding compartment syndrome. Patient presented because his toes got sore. He reports foot is more swollen now, more painful, more TTP. Of note, he reports that he has been showering normally, but he pats his wound dry. He had a normal ultrasound and does not have a DVT. He also does not have a fracture seen on Xrays nor an abscess seen on MRI of the foot. He does however have a large hematoma. His wound does not have pus or obvious drainage. His area of erythema and warmth and swelling is very extensive from the medial thigh all the way down with an irregular pattern to his toes. However, he has less edema overnight especially of the calf today. The erythema is markedly better of the medial thigh though the area of infection is still quite extensive. Consulted surgery to see if he would benefit from any intervention as he may have bacteria in the hematoma vs possible abscess. Review of Systems Other Other Denies fever or chills No polyuria, polydipsia Denies vision changes, eye pain, hearing changes, rhinorrhea, sore throat Denies sore throat, runny nose, cough No chest pain, palpitations, shortness of breath No abdominal pain Denies constipation, diarrhea, nausea, vomiting, black or bloody stools No dysuria, hematuria Denies muscle/joint pain, weakness, headache No rashes, itching Past Family Social History Past Medical History Past Medical History: Paroxysmal A. Fib. - on AC with Eliquis H/o + PPD Sleep apnea - previous sleep study by Dr. Robison Other Physicians involved in care: Dr. Hernández; ophthalmology Past Surgical History denies Allergies: Coded Allergies: No Known Allergies (Verified , 04/30/17) Family History Family History: Father with carotid artery disease also with atrial fibrillation. at 86. Mother - hypertension. alive at 85 (mod. dementia- now in SNF). Brother of lung cancer. Social History Social History: Non-smoker. Works for [employer] in [place] [facility]. . 2 grown kids. Physical Exam Vital Signs Vital Signs Date Time Temp Pulse Resp B/P (MAP) Pulse Ox O2 Delivery O2 Flow Rate FiO2 05/02/17 11:45 96.8 84 12 104/61 (75) 96 05/02/17 08:10 98.0 96 15 124/76 (92) 95 05/01/17 22:31 96.5 72 20 119/79 (92) 95 05/01/17 20:06 98.7 68 18 103/61 (75) 99 05/01/17 19:17 98 05/01/17 17:04 98.5 71 18 99/63 (75) 98 05/01/17 12:10 98.2 73 22 116/61 (79) 99 Physical Exam GENERAL: Well developed well-nourished middle-aged male pleasant and in NAD. SKIN: See MSK exam. Otherwise, Focused skin assessment warm/dry. HEAD: Atraumatic. Normocephalic. EYES: Pupils equal and round. No scleral icterus. No injection or drainage. ENT: No nasal bleeding or discharge. Mucous membranes pink and moist. NECK: Trachea midline. Supple. CARDIOVASCULAR: Regular rate and rhythm . No murmur appreciated. RESPIRATORY: No accessory muscle use. Clear to auscultation. Breath sounds equal bilaterally. GASTROINTESTINAL: Abdomen soft, non-tender, nondistended. Hepatic and splenic margins not palpable. MUSCULOSKELETAL: 8 cm laceration on anterior aspect of right brown with multiple sutures and sanguinous drainage, which was collected and sent for wound culture. He has an area of erythema about 60 cm x 15 cm on his right anterior leg extending from his thigh down to his lower leg. He also has an area of erythema about 8 cm x 8 cm on his right medial ankle. He also has an area of erythema on his right MCP about 2 cm x 3 cm. Patient has hematoma extending from his right upper inner thigh all the way down to his heel. + Warmth, erythema. There is 1+ edema noted. He is able to partially flex and extend his ankle and knee. Palpable DP pulse with cap refill <2 secs. Able to wiggle and feel all five toes. NEUROLOGICAL: Awake and alert. No obvious cranial nerve deficits. Motor grossly within normal limits. Normal speech. PSYCHIATRIC: Appropriate mood and affect; insight and judgment normal. Laboratory Laboratory Tests Test 05/01/17 16:45 05/02/17 06:17 05/02/17 10:00 Blood Urea Nitrogen 14 13 Creatinine 0.84 0.82 Random Glucose 88 85 Total Protein 6.2 Albumin 2.8 Calcium Level 8.6 8.4 Alkaline Phosphatase 59 Aspartate Amino Transf (AST/SGOT) 11 Alanine Aminotransferase (ALT/SGPT) 23 Total Bilirubin 0.7 Sodium Level 138 138 Potassium Level 4.1 4.0 Chloride Level 105 106 Carbon Dioxide Level 28.0 26.2 Anion Gap 5 6 Estimat Glomerular Filtration Rate 93 95 White Blood Count 5.5 Red Blood Count 2.85 Hemoglobin 9.7 Hematocrit 27.5 Mean Corpuscular Volume 96.3 Mean Corpuscular Hemoglobin 33.9 Mean Corpuscular Hemoglobin Concent 35.2 Red Cell Distribution Width 12.3 Platelet Count 240 Mean Platelet Volume 8.4 Vancomycin Level Trough 12.7 Date/Time Source Procedure Growth Status 05/01/17 00:15 Blood Peripheral Aerobic Blood Culture - Preliminary NO GROWTH IN 1 DAY Resulted 05/01/17 00:15 Blood Peripheral Anaerobic Blood Culture - Preliminary NO GROWTH IN 1 DAY Resulted 05/01/17 05:20 Wound Leg Gram Stain - Final Resulted 05/01/17 05:20 Wound Leg Wound Culture - Preliminary RARE GROWTH NORMAL SKIN NANCY AT 24 HRS Resulted Result Diagram: 05/02/17 0617 05/02/17 0617 Imaging Last Impressions Foot MRI 05/01/17 0000 Signed Impressions: Service Date/Time: April 01:25 - CONCLUSION: Findings of cellulitis as well synovitis involving the first metatarsophalangeal joint. No bony destructive lesion is identified Simone Hernandez MD Tibia/Fibula X-Ray 04/30/172252 Signed Impressions: Service Date/Time: Sunday, April 30, 2017 23:27 - CONCLUSION: 1. There is no evidence of acute fracture. Simone Hernandez MD Lower Extremity Ultrasound 04/30/172252 Signed Impressions: Service Date/Time: Sunday, April 30, 2017 23:01 - CONCLUSION: 1. No evidence of deep venous thrombosis. 2. Probable hematoma right calf Simone Hernandez MD Foot X-Ray 04/30/172252 Signed Impressions: Service Date/Time: Sunday, April 30, 2017 23:29 - CONCLUSION: 1. There is no evidence of acute fracture. Diffuse soft tissue swelling 2. 2 cm lucent lesion in the proximal phalanx first digit of uncertain etiology. MRI is recommended for further evaluation if clinically indicated. Simone Hernandez MD Femur X-Ray 04/30/172252 Signed Impressions: Service Date/Time: Sunday, April 30, 2017 23:24 - CONCLUSION: 1. There is no evidence of acute fracture. Joint effusion Simone Hernandez MD Ankle X-Ray 04/30/172252 Signed Impressions: Service Date/Time: Sunday, April 30, 2017 23:27 - CONCLUSION: 1. There is no evidence of acute fracture. Simone B. Turetsky, MD Caprini VTE Risk Assessment Caprini VTE Risk Assessment: Mod/High Risk (score >= 2) Caprini Risk Assessment Model Point Value = 1 Point Value = 2 Point Value = 3 Point Value = 5 Age 41-60 Minor surgery BMI > 25 kg/m2 Swollen legs Varicose veins or History of unexplained or recurrent spontaneous Oral contraceptives or hormone replacement Sepsis (< 1 month) Serious lung disease, including pneumonia (< 1 month) Abnormal pulmonary function Acute myocardial infarction Congestive heart failure (< 1 month) History of inflammatory bowel disease Medical patient at bed rest Age 61-74 Arthroscopic surgery Major open surgery (> 45 min) Laparoscopic surgery (> 45 min) Malignancy Confined to bed (> 72 hours) Immobilizing plaster cast Central venous access Age >= 75 History of VTE Family history of VTE Factor V Leiden Prothrombin [id number] Lupus anticoagulant Anticardiolipin antibodies Elevated serum homocysteine Heparin-induced thrombocytopenia Other congenital or acquired thrombophilia Stroke (< 1 month) Elective arthroplasty Hip, pelvis, or leg fracture Acute spinal cord injury (< 1 month) Prophylaxis Regimen Total Risk Factor Score Risk Level Prophylaxis Regimen 0-1 Low Early ambulation 2 Moderate Order ONE of the following: *Sequential Compression Device (SCD) *Heparin 5000 units SQ BID 3-4 Higher Order ONE of the following medications: *Heparin 5000 units SQ TID *Enoxaparin/Lovenox 40 mg SQ daily (WT < 150 kg, CrCl > 30 mL/min) *Enoxaparin/Lovenox 30 mg SQ daily (WT < 150 kg, CrCl > 10-29 mL/min) *Enoxaparin/Lovenox 30 mg SQ BID (WT < 150 kg, CrCl > 30 mL/min) AND/OR *Sequential Compression Device (SCD) 5 or more Highest Order ONE of the following medications: *Heparin 5000 units SQ TID (Preferred with Epidurals) *Enoxaparin/Lovenox 40 mg SQ daily (WT < 150 kg, CrCl > 30 mL/min) *Enoxaparin/Lovenox 30 mg SQ daily (WT < 150 kg, CrCl > 10-29 mL/min) *Enoxaparin/Lovenox 30 mg SQ BID (WT < 150 kg, CrCl > 30 mL/min) AND *Sequential Compression Device (SCD) Assessment and Plan Assessment and Plan Patient is a a 62-year-old male with a history of A. fib on Eliquis who was seen and evaluated and admitted as a trauma alert on April 23, who presents today with complaints of worsening pain and swelling of his right lower extremity concerning for cellulitis. Patient failed outpatient therapy with Keflex. Thus, patient admitted for IV antibiotics. Will look for cultures done from wound opening as they are more accurate. He has had 2 days of abx and is responding well. Problem List: (1) Cellulitis ICD Codes: L03.90 - Cellulitis, unspecified Plan: -CBC, CMP -Follow up blood culture and wound culture. suspect initial wound culture was not definitive as it was just of non infected fluid from laceration -Admitted to inpatient -Maintenance IV fluids with normal saline IV at 140 mL per hour, can heplock -Vancomycin to be dosed by pharmacy about every 12 hours to cover any and all skin nancy -Zosyn 3.375 g IV every 6 hours because patient has been showering normally and thus may have contamination of wound by fecal nancy or urinary nancy -Pain control with Tylenol, Percocet, morphine; can change pending CMP; would have included NSAIDs but did not have kidney function tests. he is doing well with pain control today -Monitor intake and output -Monitor vital signs -Physical therapy -Oxygen as needed -Consider orthopedic surgery consult for MRI finding of synovitis he was seen by surgery and his wound was drained so hopefully this results in a better culture. needs iv abx as they are working well and agree he could have unusual organism that entered his wound (2) Atrial fibrillation ICD Codes: I48.91 - Atrial fibrillation Status: Chronic Plan: -Continue home medications of Cardizem, digoxin, Eliquis (3) Glaucoma ICD Codes: H40.9 - Unspecified glaucoma Status: Chronic Plan: -Continue home eyedrops (4) Depression ICD Codes: F32.9 - Major depressive disorder, single episode, unspecified Status: Chronic Plan: -Continue home medication of sertraline (5) No contraindication to deep vein thrombosis (DVT) prophylaxis ICD Codes: Z78.9 - Other specified health status Plan: -Continue home medication of Eliquis (6) Nutrition, metabolism, and development symptoms ICD Codes: R63.8 - Other symptoms and signs concerning food and fluid intake Plan: Fluids: Maintenance fluids with normal saline IV Electrolytes: Monitor and replete Nutrition: Regular basic diet Problem Qualifiers (1) Cellulitis: Qualified Codes: L03.115 - Cellulitis of right lower limb (2) Atrial fibrillation: Qualified Codes: I48.2 - Chronic atrial fibrillation (3) Glaucoma: (4) Depression: Qualified Codes: F32.9 - Major depressive disorder, single episode, unspecified Cari Pittman MD May 02, 2017 12:08
[2017-05-02 14:13] VITALS: O2SAT 98
[2017-05-02 16:00] VITALS: BP 104/65; PULSE 74; RESP 17; TEMP 97.3; O2SAT 95
[2017-05-02 20:25] VITALS: BP 108/63; PULSE 70; RESP 20; TEMP 96.5; O2SAT 98
[2017-05-02] MEDS: DILTIAZEM-CD 240 MG CAP ER PO SCH (21:20)
[2017-05-02] MEDS: oxyCODONE/ACETAMINOPHEN 10 MG/325 MG TAB PO PRN (21:21)
[2017-05-02] MEDS: LATANOPROST 0.005% OPHT SOLN 2.5 ML BTL RIGHT EYE SCH (21:22)
[2017-05-03] VITALS (8 sets, daily range): BP systolic 107–124; BP diastolic 59–79; PULSE 79–85; RESP 19–20; TEMP 96.7–97.4; O2SAT 96–99
[2017-05-03] MEDS: PIPERACIL-TAZO 3.375 GM PREMIX 50 ML IV SCH ×5 (00:05→23:36)
[2017-05-03] MEDS: MORPHINE SULFATE 4 MG/ML INJ IV PUSH PRN (00:07)
[2017-05-03 04:42] LABS: HEMATOCRIT 27.4 % (39.0-51.0); MEAN CELL VOLUME 97.3 FL (80.0-100.0); MEAN CORPUSCULAR HEMOGLOBIN 33.7 PG (27.0-34.0); MEAN CORPUSCULAR HGB CONC 34.6 % (32.0-36.0); PLATELET COUNT 254 TH/MM3 (150-450); RED BLOOD COUNT 2.82 MIL/MM3 (4.50-5.90); RED CELL DISTRIBUTION WIDTH 12.5 % (11.6-17.2); REVIEW FLAG FINAL; WHITE BLOOD COUNT 4.9 TH/MM3 (4.0-11.0)
[2017-05-03 05:14] LABS: BICARBONATE 25.6 MEQ/L (21.0-32.0); POTASSIUM 4.1 MEQ/L (3.5-5.1)
[2017-05-03] MEDS: SERTRALINE HCL 50 MG TAB PO SCH (08:18)
[2017-05-03] MEDS: CYANOCOBALAMIN 1,000 MCG TAB PO SCH (08:18)
[2017-05-03] MEDS: DOCUSATE SODIUM 50 MG/SENNA 8.6 MG TAB PO SCH ×2 (08:18→20:27)
[2017-05-03] MEDS: SODIUM CHLORIDE 0.9% FLUSH 10 ML FLUSH IV FLUSH SCH ×2 (08:18→20:26)
[2017-05-03] MEDS: APIXABAN 5 MG TABLET PO SCH ×2 (08:18→20:27)
[2017-05-03] MEDS: DIGOXIN 0.25 MG TAB PO SCH (08:18)
[2017-05-03] MEDS: BRIMONIDINE TARTRATE 0.15% OPHT SOLN 5 ML BTL RIGHT EYE SCH ×2 (08:21→20:28)
[2017-05-03] MEDS: DORZOLAMIDE/TIMOLOL OPTH SOLN 10 ML BTL RIGHT EYE SCH ×2 (08:21→20:29)
--- NOTE | 2017-05-03 08:39 | HHI.FPPN ---
Subjective Remarks No events overnight. Yesterday he had stitches removed and 200 cc of old semi- coagulated blood drained. Wound cultures from this sample are pending. He remains afebrile and without leukocytosis. He has significant relief since the drainage. Pain is well controlled. The area of erythema continues to decrease. There is no purulent drainage from the wound. He has no chest pain, shortness of breath, abdominal pain, and reports normal urination and bowel movements. He is up and moving around. (Ross Almendarez MD R3) Objective Vitals Vital Signs Date Time Temp Pulse Resp B/P (MAP) Pulse Ox O2 Delivery O2 Flow Rate FiO2 05/03/17 07:54 96.9 80 20 109/59 (76) 96 05/03/17 02:00 98 05/03/17 00:02 96.7 80 20 107/70 (82) 98 05/02/17 20:25 96.5 70 20 108/63 (78) 98 05/02/17 16:00 97.3 74 17 104/65 (78) 95 05/02/17 14:13 98 05/02/17 11:45 96.8 84 12 104/61 (75) 96 I/O 05/02/17 05/02/17 05/02/17 05/03/17 05/03/17 05/03/17 07:00 15:00 23:00 07:00 15:00 23:00 Intake Total 360 ml 720 ml 480 ml 1045 ml 120 ml Balance 360 ml 720 ml 480 ml 1045 ml 120 ml Intake Oral 360 ml 720 ml 480 ml 480 ml 120 ml IV Total 565 ml # Voids 1 4 4 # Bowel Movements 1 (Ross Almendarez MD R3) Result Diagram: 05/03/17 0320 05/03/17 0330 Objective Remarks GENERAL: Sitting up in bed, no distress SKIN: See MSK HEAD: Normocephalic ENT: No nasal discharge NECK: Supple CARDIOVASCULAR: Regular rate and rhythm . No murmur, rubs, or gallops. RESPIRATORY: CTAB GASTROINTESTINAL: Abdomen soft, non-tender, nondistended. MUSCULOSKELETAL: 8 cm laceration on anterior aspect of right brown with sutures removed. He has an area of erythema on his right anterior leg extending from his thigh down to his lower leg. This area is significantly decreasing since admission but is still present and significant. He also has an area of erythema on his right medial ankle that is decreasing. He also has an area of erythema on his right MCP that is also decreasing. Areas of erythema are warm to the touch but less so than before. Swelling is significantly less since drainage. Area of hematoma is decreased. There is sanguineous, non-purulent material draining a small amount from the open wound. NEUROLOGICAL: Awake and alert. PSYCHIATRIC: Appropriate mood and affect; insight and judgment normal. Procedures On 05/02/17, stitches removed from laceration and 200 cc of semi-coagulated blood removed. (Ross Almendarez MD R3) A/P Assessment and Plan 62-year-old male with a history of A. fib on Eliquis who was seen and evaluated and admitted as a trauma alert on April 23, who presented this time with complaints of worsening pain and swelling of his right lower extremity concerning for cellulitis. Patient failed outpatient therapy with Keflex. Discharge Planning Pending continued improvement of cellulitis, remaining afebrile, negative blood cultures, wound culture resulted, and able to tolerate PO antibiotics with good follow up outpatient. (Ross Almendarez MD R3) Attending Attestation Patient seen and examined. Case reviewed and discussed with the resident team. Agree with plan of care as discussed with me and documented in the resident note. doing much better- thanks Dr Naik! (Cari Pittman MD) Problem List: (1) Cellulitis ICD Codes: L03.90 - Cellulitis, unspecified Plan: Developed non-purulent cellulitis following trauma to the right lower leg , open wound on the right lower leg s/p removal of stitches and evacuation of 200 cc of semi-coagulated blood on 05/02/17. Area of erythema and warmth/ swelling decreasing. - Vancomycin and Zosyn started 05/01 with subsequent improvement. - Pain control with Tylenol and Percocet, morphine for breakthrough pain. - Physical therapy on board - Cardiovascular surgery on board, appreciate recommendations, evacuated hematoma on 05/02 - Follow up on wound cultures from hematoma evacuation. - PO antibiotics depending on culture results. - Close follow up with PCP at discharge. (2) Atrial fibrillation ICD Codes: I48.91 - Atrial fibrillation Status: Chronic Plan: -Continue home medications of Cardizem, digoxin, Eliquis (3) Glaucoma ICD Codes: H40.9 - Unspecified glaucoma Status: Chronic Plan: -Continue home eyedrops (4) Depression ICD Codes: F32.9 - Major depressive disorder, single episode, unspecified Status: Chronic Plan: -Continue home medication of sertraline (5) No contraindication to deep vein thrombosis (DVT) prophylaxis ICD Codes: Z78.9 - Other specified health status Status: Acute Plan: -Continue home medication of Eliquis - Encourage ambulation (6) Nutrition, metabolism, and development symptoms ICD Codes: R63.8 - Other symptoms and signs concerning food and fluid intake Plan: Fluids: PO fluids Electrolytes: stable Monitor kidney function while on vancomycin Nutrition: Regular basic diet (Ross Almendarez MD R3) Problem Qualifiers (1) Cellulitis: Qualified Codes: L03.115 - Cellulitis of right lower limb (2) Atrial fibrillation: Qualified Codes: I48.2 - Chronic atrial fibrillation (3) Glaucoma: (4) Depression: Qualified Codes: F32.9 - Major depressive disorder, single episode, unspecified Ross Almendarez MD R3 May 03, 2017 08:39 Cari Pittman MD May 03, 2017 13:27
[2017-05-03] MEDS: VANCOMYCIN INJ 1,500 MG in SODIUM CHLORID 0.9% 500 ML INJ 500 ML IV SCH ×2 (09:49→20:28)
[2017-05-03] MEDS: oxyCODONE/ACETAMINOPHEN 5 MG/325 MG TAB PO PRN ×2 (17:33→23:38)
[2017-05-03] MEDS: DILTIAZEM-CD 240 MG CAP ER PO SCH (20:27)
[2017-05-03] MEDS: LATANOPROST 0.005% OPHT SOLN 2.5 ML BTL RIGHT EYE SCH (20:28)
[2017-05-04 00:42] VITALS: BP 112/81; PULSE 82; RESP 20; TEMP 96.3; O2SAT 98
[2017-05-04] MEDS: PIPERACIL-TAZO 3.375 GM PREMIX 50 ML IV SCH ×4 (06:09→22:13)
[2017-05-04] MEDS: CYANOCOBALAMIN 1,000 MCG TAB PO SCH (07:56)
[2017-05-04] MEDS: SERTRALINE HCL 50 MG TAB PO SCH (07:56)
[2017-05-04] MEDS: DORZOLAMIDE/TIMOLOL OPTH SOLN 10 ML BTL RIGHT EYE SCH ×2 (07:57→22:11)
[2017-05-04] MEDS: BRIMONIDINE TARTRATE 0.15% OPHT SOLN 5 ML BTL RIGHT EYE SCH ×2 (07:57→22:11)
[2017-05-04] MEDS: SODIUM CHLORIDE 0.9% FLUSH 10 ML FLUSH IV FLUSH SCH ×2 (07:57→22:10)
[2017-05-04] MEDS: APIXABAN 5 MG TABLET PO SCH ×2 (07:57→22:10)
[2017-05-04] MEDS: DIGOXIN 0.25 MG TAB PO SCH (07:57)
[2017-05-04] MEDS: DOCUSATE SODIUM 50 MG/SENNA 8.6 MG TAB PO SCH ×2 (07:57→21:00)
[2017-05-04 08:00] VITALS: BP 112/69; PULSE 73; RESP 20; TEMP 97.4; O2SAT 97
[2017-05-04 08:32] LABS: HEMATOCRIT 29.8 % (39.0-51.0); MEAN CELL VOLUME 97.2 FL (80.0-100.0); MEAN CORPUSCULAR HEMOGLOBIN 32.7 PG (27.0-34.0); MEAN CORPUSCULAR HGB CONC 33.7 % (32.0-36.0); PLATELET COUNT 305 TH/MM3 (150-450); RED BLOOD COUNT 3.06 MIL/MM3 (4.50-5.90); RED CELL DISTRIBUTION WIDTH 12.6 % (11.6-17.2); REVIEW FLAG FINAL; WHITE BLOOD COUNT 4.3 TH/MM3 (4.0-11.0)
[2017-05-04 08:56] LABS: BICARBONATE 24.7 MEQ/L (21.0-32.0); POTASSIUM 3.6 MEQ/L (3.5-5.1)
[2017-05-04] MEDS ORDERED: PHARMACY ORDERED LAB ONE (09:45)
[2017-05-04] MEDS: VANCOMYCIN INJ 1,500 MG in SODIUM CHLORID 0.9% 500 ML INJ 500 ML IV SCH (11:01)
--- NOTE | 2017-05-04 11:31 | HHI.FPPN ---
Subjective Remarks No acute events. Reports much improvement in his leg. Reports no purulent drainage from the wound. No chest pain, shortness of breath, abdominal pain, nausea, vomiting. Normal bowel movements and urination. (Ross Almendarez MD R3) Objective Vitals Vital Signs Date Time Temp Pulse Resp B/P (MAP) Pulse Ox O2 Delivery O2 Flow Rate FiO2 05/04/17 08:00 97.4 73 20 112/69 (83) 97 05/04/17 00:42 96.3 82 20 112/81 (91) 98 05/03/17 21:34 97.0 85 20 124/74 (91) 98 05/03/17 19:42 98 21 05/03/17 16:00 97.4 79 19 113/69 (84) 96 05/03/17 12:00 96.9 82 20 114/79 (91) 97 I/O 05/03/17 05/03/17 05/03/17 05/04/17 05/04/17 05/04/17 07:00 15:00 23:00 07:00 15:00 23:00 Intake Total 1045 ml 685 ml 1760 ml 50 ml 240 ml Output Total 1500 ml Balance 1045 ml 685 ml 260 ml 50 ml 240 ml Intake Oral 480 ml 120 ml 1200 ml 240 ml IV Total 565 ml 565 ml 560 ml 50 ml Output Urine Total 1500 ml # Voids 4 # Bowel Movements 1 (Ross Almendarez MD R3) Result Diagram: 05/04/17 0709 05/04/17 0709 Objective Remarks GENERAL: Sitting up in bed, no distress SKIN: See MSK HEAD: Normocephalic ENT: No nasal discharge NECK: Supple CARDIOVASCULAR: Regular rate and rhythm . No murmur, rubs, or gallops. RESPIRATORY: CTAB GASTROINTESTINAL: Abdomen soft, non-tender, nondistended. MUSCULOSKELETAL: Overall leg appearing much better. 8 cm laceration on anterior aspect of right brown with sutures except two removed. He has an area of erythema on his right anterior leg extending from his thigh down to his lower leg. This area is significantly decreasing since admission but is still present and significant. He also has an area of erythema on his right medial ankle that is decreasing. He also has an area of erythema on his right MCP that is also decreasing. Areas of erythema are warm to the touch but less so than before. Swelling is significantly less since drainage. Area of hematoma is decreased. There is sanguineous, non-purulent material draining a small amount from the open wound. NEUROLOGICAL: Awake and alert. PSYCHIATRIC: Appropriate mood and affect; insight and judgment normal. Procedures On 05/02/17, stitches removed from laceration and 200 cc of semi-coagulated blood removed. (Ross Almendarez MD R3) A/P Assessment and Plan 62-year-old male with a history of A. fib on Eliquis who was seen and evaluated and admitted as a trauma alert on April 23, who presented this time with complaints of worsening pain and swelling of his right lower extremity concerning for cellulitis. Patient failed outpatient therapy with Keflex. Discharge Planning Pending continued improvement of cellulitis, remaining afebrile, negative blood cultures, wound culture resulted, and able to tolerate PO antibiotics with good follow up outpatient. (Ross Almendarez MD R3) Attending Attestation Patient seen and examined. Case reviewed and discussed with the resident team. Agree with plan of care as discussed with me and documented in the resident note. he is doing well. his wound should heal quickly. anticipate home tomorrow (Cari Pittman MD) Problem List: (1) Cellulitis ICD Codes: L03.90 - Cellulitis, unspecified Plan: Developed non-purulent cellulitis following trauma to the right lower leg , open wound on the right lower leg s/p removal of stitches and evacuation of 200 cc of semi-coagulated blood on 05/02/17. Area of erythema and warmth/ swelling decreasing. - Vancomycin and Zosyn started 05/01 with subsequent improvement. - Pain control with Tylenol and Percocet, morphine for breakthrough pain. - Physical therapy on board - Cardiovascular surgery on board, appreciate recommendations, evacuated hematoma on 05/02 - Follow up on wound cultures from hematoma evacuation. - PO antibiotics depending on culture results. - Close follow up with PCP at discharge. - Consult wound nurse for help with wound care and patient education. (2) Atrial fibrillation ICD Codes: I48.91 - Atrial fibrillation Status: Chronic Plan: -Continue home medications of Cardizem, digoxin, Eliquis (3) Glaucoma ICD Codes: H40.9 - Unspecified glaucoma Status: Chronic Plan: -Continue home eyedrops (4) Depression ICD Codes: F32.9 - Major depressive disorder, single episode, unspecified Status: Chronic Plan: -Continue home medication of sertraline (5) No contraindication to deep vein thrombosis (DVT) prophylaxis ICD Codes: Z78.9 - Other specified health status Status: Acute Plan: -Continue home medication of Eliquis - Encourage ambulation (6) Nutrition, metabolism, and development symptoms ICD Codes: R63.8 - Other symptoms and signs concerning food and fluid intake Plan: Fluids: PO fluids Electrolytes: stable Monitor kidney function while on vancomycin Nutrition: Regular basic diet (Ross Almendarez MD R3) Problem Qualifiers (1) Cellulitis: Qualified Codes: L03.115 - Cellulitis of right lower limb (2) Atrial fibrillation: Qualified Codes: I48.2 - Chronic atrial fibrillation (3) Glaucoma: (4) Depression: Qualified Codes: F32.9 - Major depressive disorder, single episode, unspecified Ross Almendarez MD R3 May 04, 2017 11:31 Cari Pittman MD May 04, 2017 14:29
[2017-05-04 12:00] VITALS: BP 121/81; PULSE 75; RESP 20; TEMP 97.6; O2SAT 98
[2017-05-04 16:00] VITALS: BP 109/69; PULSE 82; RESP 19; TEMP 96.9; O2SAT 96
[2017-05-04 16:37] VITALS: O2SAT 98
[2017-05-04 21:38] VITALS: BP 121/80; PULSE 97; RESP 18; TEMP 97.9; O2SAT 97
[2017-05-04] MEDS: DILTIAZEM-CD 240 MG CAP ER PO SCH (22:10)
[2017-05-04] MEDS: VANCOMYCIN 1,000 MG/NS 250 ML IV SCH ×2 (22:11)
[2017-05-04] MEDS: LATANOPROST 0.005% OPHT SOLN 2.5 ML BTL RIGHT EYE SCH (22:11)
[2017-05-04] MEDS: oxyCODONE/ACETAMINOPHEN 10 MG/325 MG TAB PO PRN (22:18)
[2017-05-05 00:35] VITALS: BP 122/91; PULSE 77; RESP 18; TEMP 97.8; O2SAT 97
[2017-05-05] MEDS: PIPERACIL-TAZO 3.375 GM PREMIX 50 ML IV SCH ×2 (05:05→10:02)
[2017-05-05 07:26] LABS: HEMATOCRIT 30.6 % (39.0-51.0); MEAN CELL VOLUME 96.7 FL (80.0-100.0); MEAN CORPUSCULAR HEMOGLOBIN 33.3 PG (27.0-34.0); MEAN CORPUSCULAR HGB CONC 34.5 % (32.0-36.0); PLATELET COUNT 315 TH/MM3 (150-450); RED BLOOD COUNT 3.16 MIL/MM3 (4.50-5.90); RED CELL DISTRIBUTION WIDTH 12.5 % (11.6-17.2); REVIEW FLAG FINAL; WHITE BLOOD COUNT 5.4 TH/MM3 (4.0-11.0)
[2017-05-05 07:51] LABS: BICARBONATE 23.4 MEQ/L (21.0-32.0); POTASSIUM 3.6 MEQ/L (3.5-5.1)
[2017-05-05 08:00] VITALS: BP 112/70; PULSE 71; RESP 17; TEMP 96; O2SAT 96
[2017-05-05] MEDS: SODIUM CHLORIDE 0.9% FLUSH 10 ML FLUSH IV FLUSH SCH (08:33)
[2017-05-05] MEDS: CYANOCOBALAMIN 1,000 MCG TAB PO SCH (08:33)
[2017-05-05] MEDS: VANCOMYCIN 1,000 MG/NS 250 ML IV SCH ×2 (08:33)
[2017-05-05] MEDS: DIGOXIN 0.25 MG TAB PO SCH (08:33)
[2017-05-05] MEDS: APIXABAN 5 MG TABLET PO SCH (08:34)
[2017-05-05] MEDS: DOCUSATE SODIUM 50 MG/SENNA 8.6 MG TAB PO SCH (08:34)
[2017-05-05] MEDS: DORZOLAMIDE/TIMOLOL OPTH SOLN 10 ML BTL RIGHT EYE SCH (08:34)
[2017-05-05] MEDS: SERTRALINE HCL 50 MG TAB PO SCH (08:34)
[2017-05-05] MEDS: BRIMONIDINE TARTRATE 0.15% OPHT SOLN 5 ML BTL RIGHT EYE SCH (08:35)
[2017-05-05] MEDS: oxyCODONE/ACETAMINOPHEN 5 MG/325 MG TAB PO PRN (08:44)
[2017-05-05] MEDS ORDERED: SENN1TAB PO (09:32)
[2017-05-05] MEDS ORDERED: OXYC1TAB36 PO (09:32)
[2017-05-05] MEDS ORDERED: LEVA500T20 PO (09:32)
--- NOTE | 2017-05-05 09:33 | HHI.DCPOC ---
Discharge Care Plan Diagnosis: (1) Cellulitis Goals to Promote Your Health * To prevent worsening of your condition and complications * To maintain your health at the optimal level Directions to Meet Your Goals Take your medications as prescribed Follow your dietary instruction Follow activity as directed Keep your appointments as scheduled Take your immunizations and boosters as scheduled If your symptoms worsen call your PCP, if no PCP go to Urgent Care Center or Emergency Room Smoking is Dangerous to Your Health. Avoid second hand smoke Call the 24-hour hour crisis hotline for domestic abuse at Ross Almendarez MD R3 May 05, 2017 09:33
--- NOTE | 2017-05-05 14:56 | HHI.FPPN ---
Subjective Remarks Patient doing well this morning. His leg continues to improve. Erythema continues to decrease. No reported purulent drainage from the wound. He is changing dressings daily and washing with running water in the shower daily. He will be discharged today, had extensive discussion about discharge planning and next steps. (Ross Almendarez MD R3) Objective Vitals Vital Signs Date Time Temp Pulse Resp B/P (MAP) Pulse Ox O2 Delivery O2 Flow Rate FiO2 05/05/17 08:00 96.0 71 17 112/70 (84) 96 05/05/17 00:35 97.8 77 18 122/91 (101) 97 05/04/17 21:38 97.9 97 18 121/80 (94) 97 05/04/17 16:37 98 05/04/17 16:00 96.9 82 19 109/69 (82) 96 I/O 05/04/17 05/04/17 05/04/17 05/05/17 05/05/17 05/05/17 07:00 15:00 23:00 07:00 15:00 23:00 Intake Total 50 ml 740 ml 1200 ml 350 ml 300 ml Output Total 1200 ml Balance 50 ml 740 ml 0 ml 350 ml 300 ml Intake Oral 240 ml 1200 ml IV Total 50 ml 500 ml 350 ml 300 ml Output Urine Total 1200 ml # Bowel Movements 1 (Ross Almendarez MD R3) Result Diagram: 05/05/1760405/05/17604 Objective Remarks GENERAL: Sitting up in bed, no distress SKIN: See MSK HEAD: Normocephalic ENT: No nasal discharge NECK: Supple CARDIOVASCULAR: Regular rate and rhythm . No murmur, rubs, or gallops. RESPIRATORY: CTAB GASTROINTESTINAL: Abdomen soft, non-tender, nondistended. MUSCULOSKELETAL: Leg best its been so far today, erythema still present but minimal compared to admission. 8 cm laceration on anterior aspect of right brown with remaining two sutures removed today. He has an area of erythema on his right anterior leg that has significantly improved. He also has an area of erythema on his right medial ankle that is decreasing. Swelling is significantly less since drainage. Small amount of semi-coagulated blood on wound, but no active drainage, no foul odor. NEUROLOGICAL: Awake and alert. Moving toes of right foot without a problem. PSYCHIATRIC: Appropriate mood and affect; insight and judgment normal. Procedures On 05/02/17, stitches removed from laceration and 200 cc of semi-coagulated blood removed. (Ross Almendarez MD R3) A/P Assessment and Plan 62-year-old male with a history of A. fib on Eliquis who was seen and evaluated and admitted as a trauma alert on April 23, who presented this time with complaints of worsening pain and swelling of his right lower extremity concerning for cellulitis. Patient failed outpatient therapy with Keflex. Improved significantly with vancomycin and Zosyn in the hospital, as well as evacuation of hematoma. Discharge Planning Pending continued improvement of cellulitis, remaining afebrile, negative blood cultures, wound culture resulted, and able to tolerate PO antibiotics with good follow up outpatient. (Ross Almendarez MD R3) Attending Attestation A detailed discussion with Dr Almendarez about patients admission and hospital course was held this morning, patient was then interviewed and examined, Agree with Asssessment and Plan, See new Orders.Patient stable for discharge,wound care discussed and patient understands (Johnny Murphy MD) Problem List: (1) Cellulitis ICD Codes: L03.90 - Cellulitis, unspecified Plan: Developed non-purulent cellulitis following trauma to the right lower leg , open wound on the right lower leg s/p removal of stitches and evacuation of 200 cc of semi-coagulated blood on 05/02/17. Area of erythema and warmth/ swelling decreasing significantly. - Vancomycin and Zosyn started 05/01 with subsequent improvement. - Will send home with Levaquin for 10 additional days. - Remaining sutures removed today. - Pain control with Tylenol and Percocet, stool softeners for constipation. - Wound cultures from hematoma evacuation remain negative at 72 hours. - Close follow up with PCP at discharge. - Keep leg elevated as much as possible. - Running water over wound daily with daily dressing changes. May apply mupirocin ointment. - Weight bearing as tolerated. (2) Atrial fibrillation ICD Codes: I48.91 - Atrial fibrillation Status: Chronic Plan: -Continue home medications of Cardizem, digoxin, Eliquis (3) Glaucoma ICD Codes: H40.9 - Unspecified glaucoma Status: Chronic Plan: -Continue home eyedrops (4) Depression ICD Codes: F32.9 - Major depressive disorder, single episode, unspecified Status: Chronic Plan: -Continue home medication of sertraline (5) No contraindication to deep vein thrombosis (DVT) prophylaxis ICD Codes: Z78.9 - Other specified health status Status: Acute Plan: -Continue home medication of Eliquis - Encourage ambulation (6) Nutrition, metabolism, and development symptoms ICD Codes: R63.8 - Other symptoms and signs concerning food and fluid intake Plan: Fluids: PO fluids Electrolytes: stable Nutrition: Regular basic diet (Ross Almendarez MD R3) Problem Qualifiers (1) Cellulitis: Qualified Codes: L03.115 - Cellulitis of right lower limb (2) Atrial fibrillation: Qualified Codes: I48.2 - Chronic atrial fibrillation (3) Glaucoma: (4) Depression: Qualified Codes: F32.9 - Major depressive disorder, single episode, unspecified Ross Almendarez MD R3 May 05, 2017 14:56 Johnny Murphy MD May 06, 2017 14:59
--- NOTE | 2017-05-05 18:05 | HHI.DS ---
Discharge Summary Admission Date May 01, 2017 at 03:08 Discharge Date: May 05, 2017 Admitting Diagnosis cellulitis (1) Cellulitis Diagnosis: Principal Plan: Developed non-purulent cellulitis following trauma to the right lower leg , open wound on the right lower leg s/p removal of stitches and evacuation of 200 cc of semi-coagulated blood on 05/02/17. Area of erythema and warmth/ swelling decreasing significantly. - Vancomycin and Zosyn started 05/01 with subsequent improvement. - Will send home with Levaquin for 10 additional days. - Remaining sutures removed today. - Pain control with Tylenol and Percocet, stool softeners for constipation. - Wound cultures from hematoma evacuation remain negative at 72 hours. - Close follow up with PCP at discharge. - Keep leg elevated as much as possible. - Running water over wound daily with daily dressing changes. May apply mupirocin ointment. - Weight bearing as tolerated. ICD Codes: L03.90 - Cellulitis, unspecified (2) Atrial fibrillation Diagnosis: Secondary Plan: -Continue home medications of Cardizem, digoxin, Eliquis ICD Codes: I48.91 - Atrial fibrillation Status: Chronic (3) Glaucoma Diagnosis: Secondary Plan: -Continue home eyedrops ICD Codes: H40.9 - Unspecified glaucoma Status: Chronic (4) Depression Diagnosis: Secondary Plan: -Continue home medication of sertraline ICD Codes: F32.9 - Major depressive disorder, single episode, unspecified Status: Chronic (5) No contraindication to deep vein thrombosis (DVT) prophylaxis Diagnosis: Secondary Plan: -Continue home medication of Eliquis - Encourage ambulation ICD Codes: Z78.9 - Other specified health status Status: Acute (6) Nutrition, metabolism, and development symptoms Diagnosis: Secondary Plan: Fluids: PO fluids Electrolytes: stable Nutrition: Regular basic diet ICD Codes: R63.8 - Other symptoms and signs concerning food and fluid intake Consultants wound care, surgery Procedures On 05/02/17, stitches removed from laceration and 200 cc of semi-coagulated blood removed. Brief History Mr Holley is a 62-year-old male with a history of A. fib on Eliquis who was seen and evaluated and admitted as a trauma alert on April 23 because of an injury associated with a fall, who presented with complaints of worsening pain and swelling and erythema with warmth of his right lower extremity. Patient denies fevers, chills. He reports his pain and swelling is worse when he gets up to stand. He reports that he is not taking any pain medications for this pain. He describes the pain as an intense dull ache, worse with movement, especially at the ball of foot bad. He reports that when he arrived at the emergency department his pain was 8 out of 10. His pain is 10 out of 10 with standing. He reports that the morphine he received in the ED helped. He reports red and clear drainage from his laceration. He denies any other complaints. After trauma alert on 04/23, he was discharged with Keflex and follow up. He was taking this medication from 04/23 to yesterday. He f/u in clinic on Friday and saw Dr. Shirley. He returned to clinic again on Friday and saw Dr. Bass and Dr. Shane. He was still achy and sore at that time. The swelling and redness was mostly the same. However, his ankle and foot were not bad. They continued Keflex and switched Neosporin for Mupirocin and cautioned him regarding compartment syndrome. Patient presented because his toes got sore. He reports foot is more swollen now, more painful, more TTP. Of note, he reports that he has been showering normally, but he pats his wound dry. He had a normal ultrasound and does not have a DVT. He also does not have a fracture seen on Xrays nor an abscess seen on MRI of the foot. He does however have a large hematoma. His wound does not have pus or obvious drainage. His area of erythema and warmth and swelling is very extensive from the medial thigh all the way down with an irregular pattern to his toes. However, he has less edema overnight especially of the calf today. The erythema is markedly better of the medial thigh though the area of infection is still quite extensive. Consulted surgery to see if he would benefit from any intervention as he may have bacteria in the hematoma vs possible abscess. CBC/BMP: 05/05/17 0605/05/17 06 Significant Findings Laboratory Tests Test 05/03/17 03:20 05/03/17 03:30 05/04/17 07:09 05/04/17 09:30 Red Blood Count 2.82 MIL/MM3 (4.50-5.90) 3.06 MIL/MM3 (4.50-5.90) Hemoglobin 9.5 GM/DL (13.0-17.0) 10.0 GM/DL (13.0-17.0) Hematocrit 27.4 % (39.0-51.0) 29.8 % (39.0-51.0) Chloride Level 108 MEQ/L (98-107) Estimat Glomerular Filtration Rate 86 ML/MIN (>89) Vancomycin Level Trough 15.7 MCG/ML (5.0-10.0) Test 05/05/17 06:05 Red Blood Count 3.16 MIL/MM3 (4.50-5.90) Hemoglobin 10.5 GM/DL (13.0-17.0) Hematocrit 30.6 % (39.0-51.0) Calcium Level 8.4 MG/DL (8.5-10.1) Chloride Level 110 MEQ/L (98-107) PE at Discharge GENERAL: Sitting up in bed, no distress SKIN: See MSK HEAD: Normocephalic ENT: No nasal discharge NECK: Supple CARDIOVASCULAR: Regular rate and rhythm . No murmur, rubs, or gallops. RESPIRATORY: CTAB GASTROINTESTINAL: Abdomen soft, non-tender, nondistended. MUSCULOSKELETAL: Leg best its been so far today, erythema still present but minimal compared to admission. 8 cm laceration on anterior aspect of right brown with remaining two sutures removed today. He has an area of erythema on his right anterior leg that has significantly improved. He also has an area of erythema on his right medial ankle that is decreasing. Swelling is significantly less since drainage. Small amount of semi-coagulated blood on wound, but no active drainage, no foul odor. NEUROLOGICAL: Awake and alert. Moving toes of right foot without a problem. PSYCHIATRIC: Appropriate mood and affect; insight and judgment normal. Hospital Course 62 year old male suffered a trauma after falling off of a forklift, involving a skin flap injury to his left anterior leg. He was sutured and discharged with Keflex. He returned to the ED on 05/01/17 for increasing erythema, warmth, and swelling and significant hematoma formation around his laceration. He was started on vancomycin and Zosyn and had significant improvement in his cellulitis. On 05/02/17 surgery removed most of the stitches from the laceration and evacuated 200 cc of semi-coagulated blood. He continued to have significant improvement after the procedure. The remaining sutures were removed on the day of discharge. He will be sent home with Levaquin for an additional 10 days. He will be given Percocet and stool softeners. Wound cultures from hematoma evacuation remain negative. He is advised to keep his leg elevated as much as possible. He is advised to change the dressing daily and wash with running water daily. He may apply mupirocin ointments with dressing changes. He can be weight-bearing as tolerated. He will follow up with his PCP. He is approved to continue his home Eliquis for atrial fibrillation. Pt Condition on Discharge: Good Discharge Disposition: Discharge Home Discharge Instructions DIET: Follow Instructions for: As Tolerated, No Restrictions Activities you can perform: Weight Bearing as [place] Follow up Referrals: PCP Follow-up - 1 Week New Medications: Levofloxacin (Levaquin) 500 Mg Tablet 500 MG PO DAILY for Infection, #10 TAB 0 Refills Oxycodone-Acetaminophen (Oxycodone-Acetaminophen) 10-325 mg Tab 1 TAB PO Q6H PRN for pain, #30 TAB Sennosides-Docusate Sodium (Senna Plus 8.6-50 mg) 8.6 Mg-50 Mg Tab 1 TAB PO BID, #30 TAB Continued Medications: Apixaban (Eliquis) 5 Mg Tab 5 MG PO BID for Blood Clot Prevention, #60 TAB 0 Refills Brimonidine Opth Drops (Brimonidine Opth Drops) 0.15% Soln 1 DROP RIGHT EYE BID for Intraocular pressure, #1 BOTTLE 0 Refills Cyanocobalamin (Vitamin B-12) 1,000 Mcg Subl 1000 MCG SL DAILY for Nutritional Supplement, TAB.SL 0 Refills Digoxin (Digoxin) 0.25 Mg Tab 0.25 MG PO DAILY for Regulate Heart Beat, #30 TAB 11 Refills Diltiazem ER 24 HR (Diltiazem ER 24 HR) 240 Mg Briana 240 MG PO DAILY, #30 TAB 0 Refills Dorzolamide-Timolol Opth Drops (Dorzolamide-Timolol Opth Drops) 22.3-6.8 Mg/Ml Soln 1 DROP RIGHT EYE BID for Glaucoma, BOTTLE 0 Refills Latanoprost Opth Drops (Latanoprost Opth Drops) 0.005% Drops 1 DROP RIGHT EYE HS for Glaucoma, #2.5 ML 0 Refills Refrigerate until opened. Mupirocin Topical (Mupirocin Topical) 2 % Oint 1 APPLIC TOPICAL BID for Mgmt Bacterial Infection, #1 TUBE 0 Refills Sertraline (Sertraline) 50 Mg Tab 50 MG PO DAILY, #93 TAB 1 Refill Discontinued Medications: Clindamycin (Clindamycin) 150 Mg Cap 450 MG PO TID for Infection for 10 Days, CAP 0 Refills Hydrocodone-Acetaminophen (Lortab) 7.5-325 Mg Tab 1 TAB PO Q6H PRN for PAIN, #20 TAB 0 Refills Ross Almendarez MD R3 May 05, 2017 18:05
[2017-05-06] MEDS ORDERED: PHARMACY ORDERED LAB ONE (08:45)
[2017-05-06] MEDS ORDERED: OXYC1TAB63 PO (13:12)
== END 2017-05-05 13:33 | disposition home or self-care (01) | DRG 603 ==
LOC: NEPE 21:33 → NEDA 05-01 03:08 → NEPHCDU 05-01 04:43 → N07A 05-01 22:25
PROVIDERS: ADMIT Family Medicine; ATTEND Family Medicine
PROC: 0JCN0ZZ Extirpation of Matter from Right Lower Leg Subcutaneous Tissue and Fascia, Open Approach (ICD-10-PCS; principal; 2017-05-02)
DX: L03.115 Cellulitis of right lower limb (principal); I48.0 Paroxysmal atrial fibrillation; S80.11XA Contusion of right lower leg, initial encounter; F32.9 Major depressive disorder, single episode, unspecified; M65.9 Synovitis and tenosynovitis, unspecified; I48.2 Chronic atrial fibrillation; K59.00 Constipation, unspecified; H40.9 Unspecified glaucoma; G47.30 Sleep apnea, unspecified; Z79.01 Long term (current) use of anticoagulants
CPT/HCPCS: 73552; 73590; 73600; 73620; 73720; 80048; 80053; 80202; 85025; 85027; 87040; 87070; 87205; 93971; 96374; 96375; A9579; J2270; J2405; J2543; J3370; J7030; J7040; J7050

== ENCOUNTER → 2017-06-18 | Outpatient (CLI) | payer OTHER ==
[~2017-06-18] MED LIST changes: +OXYC1TAB63 PO; +SENN1TAB PO
[2017-06-18 09:41] LABS: MEAN CELL VOLUME 93.2 FL (80.0-100.0); MEAN CORPUSCULAR HEMOGLOBIN 30.4 PG (27.0-34.0); MEAN CORPUSCULAR HGB CONC 32.6 % (32.0-36.0); PLATELET COUNT 267 TH/MM3 (150-450); RED BLOOD COUNT 4.72 MIL/MM3 (4.50-5.90); RED CELL DISTRIBUTION WIDTH 13.3 % (11.6-17.2); REVIEW FLAG FINAL; WHITE BLOOD COUNT 4.7 TH/MM3 (4.0-11.0)
== END ==
LOC: OLAB 07:05
PROVIDERS: ATTEND Family Medicine
DX: E53.8 Deficiency of other specified B group vitamins (principal)
CPT/HCPCS: 36415; 82607; 85027